=== PATIENT | male | born 1960 | race Caucasian/White ===

== ENCOUNTER 2020-02-13 20:57 | Emergency (ER) | payer MEDICAID ==
[~2020-02-13] VITALS: Ht 170.2 cm; Wt 81.6 kg
[2020-02-13 21:20] VITALS: BP 143/95
== END 2020-02-14 00:01 | disposition left against medical advice (07) ==
LOC: ER 20:57
DX: R10.9 Unspecified abdominal pain (principal); Z53.21 Procedure and treatment not carried out due to patient leaving prior to being seen by health care provider
CPT/HCPCS: 74176

== ENCOUNTER 2022-09-10 10:19 | Emergency (ER) | payer OTHER, MEDICAID ==
[~2022-09-10] VITALS: Ht 170.2 cm; Wt 82.2 kg
[2022-09-10 10:58] VITALS: BP 126/69
[2022-09-10] MEDS ORDERED: KETOROLAC TROMETH 60MG/2ML VIAL IM ONE (11:30)
[2022-09-10] MEDS ORDERED: cefTRIAXone SOD 1,000 MG VL IM ONE (11:30)
[2022-09-10] MEDS ORDERED: CEPH-510 PO (11:37)
[2022-09-10] MEDS ORDERED: INDO50CA82 PO (11:37)
== END 2022-09-10 11:46 | disposition home or self-care (01) ==
LOC: ER 10:19
DX: S60.562A Insect bite (nonvenomous) of left hand, initial encounter (principal); Z79.899 Other long term (current) drug therapy; W57.XXXA Bitten or stung by nonvenomous insect and other nonvenomous arthropods, initial encounter; Y93.89 Activity, other specified; Y92.89 Other specified places as the place of occurrence of the external cause; Y99.8 Other external cause status
CPT/HCPCS: 96372; 99283; J0696; J1885

== ENCOUNTER → 2022-09-26 | Emergency (ER) | payer OTHER, MEDICAID ==
[~2022-09-26] VITALS: Ht 170.2 cm; Wt 81.0 kg
[~2022-09-26] MED LIST: CEPH-510 PO; CIP03OS EACHEYE; GEN03OS OP; INDO50CA82 PO
[2022-09-26 15:54] VITALS: BP 134/76
== END | disposition home or self-care (01) ==
LOC: ER 13:12
DX: H10.33 Unspecified acute conjunctivitis, bilateral (principal)

== ENCOUNTER 2022-09-28 12:40 | Emergency (ER) | payer OTHER, MEDICAID ==
[~2022-09-28] VITALS: Ht 170.2 cm; Wt 82.0 kg
[~2022-09-28 12:40] MED LIST changes: -GEN03OS OP
[2022-09-28 12:59] VITALS: BP 154/92
[2022-09-28] MEDS ORDERED: GEN03OS OP (17:45)
== END 2022-09-28 17:46 | disposition home or self-care (01) ==
LOC: ER 12:40
DX: H10.33 Unspecified acute conjunctivitis, bilateral (principal); M19.90 Unspecified osteoarthritis, unspecified site; Z79.899 Other long term (current) drug therapy; Z90.49 Acquired absence of other specified parts of digestive tract
CPT/HCPCS: 70450; 70486